=== PATIENT | male | born 1950 | race Caucasian/White ===

== ENCOUNTER → 2017-06-06 | Outpatient (CLI) | payer MEDICARE, BC, OTHER ==
[2017-06-06 09:11] LABS: ALBUMIN 3.7 GM/DL (3.2-5.2); ALBUMIN/GLOBULIN RATIO 1.16 (1.00-1.93); ALKALINE PHOSPHATASE 65 U/L (45-117); ALT/SGPT 42 U/L (12-78); ANION GAP 5 MEQ/L (8-16); AST/SGOT 22 U/L (7-37); BILIRUBIN,TOTAL 0.5 MG/DL (0.2-1.0); BLOOD UREA NITROGEN 13 MG/DL (7-18); CALCIUM LEVEL 9.2 MG/DL (8.8-10.2); CARBON DIOXIDE LEVEL 29 MEQ/L (21-32); CHLORIDE LEVEL 107 MEQ/L (98-107); CHOLESTEROL LEVEL 191 MG/DL (<200); CREATININE FOR GFR 0.95 MG/DL (0.70-1.30); GLOMERULAR FILTRATION RATE > 60.0 (>49); GLUCOSE, FASTING 104 MG/DL (80-110); POTASSIUM SERUM 4.3 MEQ/L (3.5-5.1); SODIUM LEVEL 141 MEQ/L (136-145); TOTAL PROTEIN 6.9 GM/DL (6.4-8.2); TRIGLYCERIDES LEVEL 108 MG/DL (<150)
== END ==
LOC: M LAB 08:12
PROVIDERS: ATTEND Emergency Medicine
DX: E78.2 Mixed hyperlipidemia (principal)

== ENCOUNTER → 2018-06-24 | Outpatient (CLI) | payer MEDICARE, BC, OTHER ==
[2018-06-24 10:02] LABS: BLOOD UREA NITROGEN 17 MG/DL (7-18); CARBON DIOXIDE LEVEL 26 MEQ/L (21-32); CHLORIDE LEVEL 109 MEQ/L (98-107); CREATININE FOR GFR 1.02 MG/DL (0.70-1.30); GLOMERULAR FILTRATION RATE > 60.0 (>42); GLUCOSE, FASTING 95 MG/DL (70-100); POTASSIUM SERUM 4.6 MEQ/L (3.5-5.1); SODIUM LEVEL 144 MEQ/L (136-145)
[2018-06-24 10:03] LABS: ALBUMIN 3.4 GM/DL (3.2-5.2); ALKALINE PHOSPHATASE 63 U/L (45-117); ALT/SGPT 31 U/L (12-78); ANION GAP 9 MEQ/L (8-16); AST/SGOT 36 U/L (7-37); BILIRUBIN,TOTAL 0.5 MG/DL (0.2-1.0); CALCIUM LEVEL 8.6 MG/DL (8.8-10.2); CHOLESTEROL LEVEL 153 MG/DL (<200); HDL CHOLESTEROL 60 MG/DL (>40); LDL CHOLESTEROL 69 MG/DL (<100); NON-HDL-C 93 MG/DL; TOTAL PROTEIN 6.5 GM/DL (6.4-8.2); TRIGLYCERIDES LEVEL 122 MG/DL (<150)
== END ==
LOC: M LAB 08:29
DX: E78.2 Mixed hyperlipidemia (principal)
CPT/HCPCS: 80053

== ENCOUNTER → 2019-06-26 | Outpatient (CLI) | payer MEDICARE, BC, OTHER ==
[~2019-06-26] MED LIST: ATOR1TAB21; CHEW500C2 PO; FISH5CAP PO; FLUTISP; PROAAER10; VITA100067 PO; VITA500T PO
[2019-06-26 09:22] LABS: ALBUMIN 3.8 GM/DL (3.2-5.2); ALT/SGPT 33 U/L (12-78); BILIRUBIN,TOTAL 0.7 MG/DL (0.2-1.0); BLOOD UREA NITROGEN 13 MG/DL (7-18); CALCIUM LEVEL 9.1 MG/DL (8.8-10.2); CARBON DIOXIDE LEVEL 28 MEQ/L (21-32); CHLORIDE LEVEL 111 MEQ/L (98-107); CHOLESTEROL LEVEL 182 MG/DL (<200); CHOLESTEROL RISK RATIO 2.676 (<5); GLOMERULAR FILTRATION RATE > 60.0 (>42); GLUCOSE, FASTING 108 MG/DL (70-100); HDL CHOLESTEROL 68 MG/DL (>40); LDL CHOLESTEROL 94 MG/DL (<100); NON-HDL-C 114 MG/DL; POTASSIUM SERUM 4.2 MEQ/L (3.5-5.1); SODIUM LEVEL 144 MEQ/L (136-145); TOTAL PROTEIN 6.8 GM/DL (6.4-8.2); TRIGLYCERIDES LEVEL 98 MG/DL (<150)
== END ==
LOC: M LAB 08:11
PROVIDERS: ATTEND Physician Assistant
DX: E78.2 Mixed hyperlipidemia (principal)

== ENCOUNTER → 2020-06-22 | Outpatient (CLI) | payer MEDICARE, BC, OTHER ==
[~2020-06-22] MED LIST changes: +CALC-362 PO; -CHEW500C2 PO; +VITA-243 PO; -VITA500T PO
[2020-06-22 10:09] LABS: BASO % 0.2 % (0.0-1.0); EOS # 0.2 10^3/uL (0.0-0.5); EOS % 2.8 % (0.0-3.0); HEMATOCRIT 49.2 % (42.0-52.0); HEMOGLOBIN 15.9 g/dl (13.5-17.5); LYMPH # 1.9 10^3/uL (1.5-5.0); LYMPH % 32.3 % (24.0-44.0); MEAN CORPUSCULAR HEMOGLOBIN 31.2 pg (27.0-33.0); MEAN CORPUSCULAR HGB CONC 32.3 g/dl (32.0-36.5); MEAN CORPUSCULAR VOLUME 96.7 fl (80.0-96.0); MONO # 0.5 10^3/uL (0.0-0.8); NEUTROPHILS # 3.4 10^3/uL (1.5-8.5); NEUTROPHILS % 56.5 % (36.0-66.0); PLATELET COUNT, AUTOMATED 246 10^3/uL (150-450); RED BLOOD COUNT 5.09 10^6/uL (4.30-6.10)
[2020-06-22 10:32] LABS: ALBUMIN 3.6 GM/DL (3.2-5.2); ALT/SGPT 33 U/L (12-78); BILIRUBIN,TOTAL 0.6 MG/DL (0.2-1.0); BLOOD UREA NITROGEN 15 MG/DL (7-18); CALCIUM LEVEL 9.1 MG/DL (8.8-10.2); CARBON DIOXIDE LEVEL 26 MEQ/L (21-32); CHLORIDE LEVEL 109 MEQ/L (98-107); CHOLESTEROL LEVEL 169 MG/DL (<200); CHOLESTEROL RISK RATIO 2.682 (<5); CREATININE FOR GFR 1.02 MG/DL (0.70-1.30); GLOMERULAR FILTRATION RATE > 60.0 (>42); GLUCOSE, FASTING 97 MG/DL (70-100); HDL CHOLESTEROL 63 MG/DL (>40); LDL CHOLESTEROL 88 MG/DL (<100); NON-HDL-C 106 MG/DL; POTASSIUM SERUM 4.7 MEQ/L (3.5-5.1); SODIUM LEVEL 140 MEQ/L (136-145); TOTAL PROTEIN 6.8 GM/DL (6.4-8.2); TRIGLYCERIDES LEVEL 88 MG/DL (<150)
== END ==
LOC: M LAB 09:11
PROVIDERS: ATTEND Physician Assistant
DX: E78.2 Mixed hyperlipidemia (principal)

== ENCOUNTER → 2021-06-21 | Outpatient (REF) | payer MEDICARE, BC, OTHER ==
[2021-06-21 13:09] LABS: ALBUMIN 3.8 GM/DL (3.2-5.2); ALT/SGPT 28 U/L (12-78); BILIRUBIN,TOTAL 0.8 MG/DL (0.2-1.0); BLOOD UREA NITROGEN 13 MG/DL (7-18); CALCIUM LEVEL 10.1 MG/DL (8.8-10.2); CARBON DIOXIDE LEVEL 29 MEQ/L (21-32); CHLORIDE LEVEL 109 MEQ/L (98-107); CHOLESTEROL LEVEL 166 MG/DL (<200); CHOLESTEROL RISK RATIO 2.766 (<5); GLOMERULAR FILTRATION RATE > 60.0 (>42); GLUCOSE, FASTING 92 MG/DL (70-100); HDL CHOLESTEROL 60 MG/DL (>40); LDL CHOLESTEROL 92 MG/DL (<100); NON-HDL-C 106 MG/DL; POTASSIUM SERUM 4.9 MEQ/L (3.5-5.1); SODIUM LEVEL 143 MEQ/L (136-145); TRIGLYCERIDES LEVEL 69 MG/DL (<150)
== END ==
LOC: M LABDRWAD 12:15
PROVIDERS: ATTEND Nurse Practitioner Family
DX: Z00.00 Encounter for general adult medical examination without abnormal findings (principal)

== ENCOUNTER → 2022-06-22 | Outpatient (REF) | payer MEDICARE, BC, OTHER ==
[2022-06-22 14:54] LABS: ALBUMIN 3.8 G/DL (3.2-5.2); ALKALINE PHOSPHATASE 75 U/L (46-116); ALT/SGPT 37 U/L (7.0-40); AST/SGOT 30 U/L (<34); BILIRUBIN,TOTAL 0.5 MG/DL (0.3-1.2); BLOOD UREA NITROGEN 13 MG/DL (9-23); CALCIUM LEVEL 9.4 MG/DL (8.3-10.6); CARBON DIOXIDE LEVEL 27 MMOL/L (20-31); CHLORIDE LEVEL 107 MMOL/L (98-107); CHOLESTEROL LEVEL 141 MG/DL (<200); CREATININE FOR GFR 0.95 MG/DL (0.70-1.30); GLOMERULAR FILTRATION RATE > 60.0 (>42); GLUCOSE, FASTING 104 MG/DL (74-106); HDL CHOLESTEROL 58.6 MG/DL (>40); LDL CHOLESTEROL 73.6 MG/DL (<100); NON-HDL-C 82 MG/DL; POTASSIUM SERUM 4.8 MMOL/L (3.5-5.1); SODIUM LEVEL 142 MMOL/L (136-145); TOTAL PROTEIN 6.8 G/DL (5.7-8.2); TRIGLYCERIDES LEVEL 44 MG/DL (<150)
== END ==
LOC: M LABDRWAD 12:50
PROVIDERS: ATTEND Nurse Practitioner Family
DX: E78.2 Mixed hyperlipidemia (principal)

== ENCOUNTER → 2023-06-19 | Outpatient (REF) | payer MEDICARE, BC, OTHER ==
[~2023-06-19] MED LIST changes: +FLUT50SP17; -FLUTISP
[2023-06-19 13:44] LABS: ALBUMIN 3.6 G/DL (3.2-5.2); ALKALINE PHOSPHATASE 72 U/L (46-116); ALT/SGPT 34 U/L (7.0-40); AST/SGOT 22 U/L (<34); BILIRUBIN,TOTAL 0.5 MG/DL (0.3-1.2); BLOOD UREA NITROGEN 17 MG/DL (9-23); CALCIUM LEVEL 9.1 MG/DL (8.3-10.6); CARBON DIOXIDE LEVEL 28 MMOL/L (20-31); CHLORIDE LEVEL 107 MMOL/L (98-107); CHOLESTEROL LEVEL 157 MG/DL (<200); CHOLESTEROL RISK RATIO 2.56 (<5); CREATININE FOR GFR 0.93 MG/DL (0.70-1.30); GLOMERULAR FILTRATION RATE > 60.0 (>42); GLUCOSE, FASTING 98 MG/DL (74-106); HDL CHOLESTEROL 61.3 MG/DL (>40); LDL CHOLESTEROL 83.5 MG/DL (<100); NON-HDL-C 95.7 MG/DL; POTASSIUM SERUM 4.4 MMOL/L (3.5-5.1); SODIUM LEVEL 143 MMOL/L (136-145); TOTAL PROTEIN 6.5 G/DL (5.7-8.2); TRIGLYCERIDES LEVEL 61 MG/DL (<150)
== END ==
LOC: M LABDRWAD 12:26
PROVIDERS: ATTEND Nurse Practitioner Family
DX: E78.2 Mixed hyperlipidemia (principal)

== ENCOUNTER 2023-07-25 09:42 | Day surgery (SDC) | payer MEDICARE, BC, OTHER ==
[~2023-07-25] VITALS: Ht 172.7 cm; Wt 64.9 kg
[~2023-07-25 09:42] MED LIST changes: -ATOR1TAB21; +ATOR1TAB21 PO; -FLUT50SP17; +FLUTISP; +KP F1200 PO; +LEVOTAB10 PO; +NS 1,000 ML IV ONE; +PROA1AER2; +VITA100093 PO; +XALA0.007
[2023-07-25 11:13] VITALS: TEMP 97.8
[2023-07-25] MEDS ORDERED: propofoL 200 MG/20 ML VIAL As Ordered ONE (11:21)
[2023-07-25 11:28] VITALS: BP 132/60; O2SAT 97
== END 2023-07-25 11:40 | disposition home or self-care (01) ==
LOC: M OPP 09:42
PROVIDERS: ATTEND Internal Medicine Gastroenterology
DX: Z12.11 Encounter for screening for malignant neoplasm of colon (principal); Z86.010 Personal history of colon polyps; K64.0 First degree hemorrhoids; K57.30 Diverticulosis of large intestine without perforation or abscess without bleeding; Z79.02 Long term (current) use of antithrombotics/antiplatelets; Z79.51 Long term (current) use of inhaled steroids

== ENCOUNTER → 2024-06-26 | Outpatient (REF) | payer MEDICARE, OTHER ==
[~2024-06-26] MED LIST changes: -NS 1,000 ML IV ONE
[2024-06-26 14:07] LABS: ALBUMIN 3.8 G/DL (3.2-5.2); ALKALINE PHOSPHATASE 75 U/L (40-129); ALT/SGPT 25 U/L (7.0-40); AST/SGOT 16 U/L (<34); BILIRUBIN,TOTAL 1.2 MG/DL (0.3-1.2); BLOOD UREA NITROGEN 13 MG/DL (9-23); CALCIUM LEVEL 9.9 MG/DL (8.3-10.6); CARBON DIOXIDE LEVEL 27 MMOL/L (20-31); CHLORIDE LEVEL 107 MMOL/L (98-107); CHOLESTEROL LEVEL 169 MG/DL (<200); CHOLESTEROL RISK RATIO 2.97 (<5); CREATININE FOR GFR 0.91 MG/DL (0.70-1.30); GLOMERULAR FILTRATION RATE > 60.0 (>42); GLUCOSE, FASTING 83 MG/DL (74-106); HDL CHOLESTEROL 56.8 MG/DL (>40); LDL CHOLESTEROL 97.6 MG/DL (<100); NON-HDL-C 112.2 MG/DL; POTASSIUM SERUM 4.8 MMOL/L (3.5-5.1); SODIUM LEVEL 141 MMOL/L (136-145); TOTAL PROTEIN 6.9 G/DL (5.7-8.2); TRIGLYCERIDES LEVEL 73 MG/DL (<150)
== END ==
LOC: M LABDRWAD 13:02
PROVIDERS: ATTEND Nurse Practitioner Family
DX: E78.2 Mixed hyperlipidemia (principal)

== ENCOUNTER → 2025-06-23 | Outpatient (REF) | payer MEDICARE, OTHER ==
[2025-06-23 13:40] LABS: ALT/SGPT 24.0 U/L (7.0-40); AST/SGOT 22.0 U/L (<34); CALCIUM LEVEL 8.9 MG/DL (8.3-10.6); CARBON DIOXIDE LEVEL 27.0 MMOL/L (20-31); CHLORIDE LEVEL 110.0 MMOL/L (98-107); CHOLESTEROL LEVEL 164.0 MG/DL (<200); CHOLESTEROL RISK RATIO 2.85 (<5); CREATININE FOR GFR 0.98 MG/DL (0.70-1.30); GLOMERULAR FILTRATION RATE 79.4 (>42); LDL CHOLESTEROL 93.6 MG/DL (<100); NON-HDL-C 106.6 MG/DL; POTASSIUM SERUM 4.4 MMOL/L (3.5-5.1); SODIUM LEVEL 145.0 MMOL/L (136-145); TRIGLYCERIDES LEVEL 65.0 MG/DL (<150)
== END ==
LOC: M LABDRWAD 13:19
PROVIDERS: ATTEND Nurse Practitioner Family
DX: E78.2 Mixed hyperlipidemia (principal)